=== PATIENT | female | born 1980 | race Caucasian/White ===

== ENCOUNTER 2024-05-08 09:02 | Emergency (ER) | payer OTHER, SELFPAY ==
[2024-05-08 09:03] VITALS: BP 116/81; PULSE 80; RESP 14; TEMP 36.7; O2SAT 98; BMI 26.5
[2024-05-08 09:08] VITALS: BP 116/81; PULSE 98; O2SAT 98
--- NOTE | 2024-05-08 09:13 | DI.RAD.S_ITS ---
PROCEDURE: XR RIBS RT MIN 3V W CXR 1V INDICATIONS: fall,rib pain TECHNIQUE: 2 views of the ribs were acquired, along with a single view chest. COMPARISON: None. FINDINGS: Surgical changes and devices: None. Bones and chest wall: No fractures or dislocations. No suspicious bony lesions. Overlying soft tissues appear unremarkable. Lungs and pleura: No pleural effusions or pneumothorax. Lungs appear clear. Mediastinum: Mediastinal contours appear normal. Heart size is normal. IMPRESSION: No displaced rib fracture or pneumothorax. Dictated by: Justo Noble M.D. on 05/08/2024 at 9:52 Approved by: Justo Noble M.D. on 05/08/2024 at 9:54
--- NOTE | 2024-05-08 09:22 | ED_ITS ---
HPI - Fall General Chief Complaint: Fall Stated Complaint: fell down stairs, r elbow pain, poss cracked ribs Time Seen by Provider: 05/08/24 09:20 Source: patient Mode of arrival: Ambulatory History of Present Illness HPI Narrative: 44-year-old female fell from steep ladder like stairs up to a loft this morning, all holding items in 1 hand, struck right chest, scraped right elbow, has predominance of right-sided chest pain that is worse with twisting movements and deep inspiration. She is able to move her right elbow and right shoulder and wrist and hand and fingers well. She denies striking her head, denies loss of consciousness, denies neck upper back, mid back midline discomfort. She does not take blood thinner medications. No nausea or vomiting. No weakness to face arm or leg. She has not tried any medications thus far for the discomfort Related Data Previous Rx's Medication Instructions Recorded albuterol sulfate 90 mcg/actuation 2 puff inhalation Q6H PRN 05/08/24 aerosol inhaler shortness of breath or wheezing #8.5 grams naproxen 500 mg tablet 500 mg PO BID 7 days #14 tabs 05/08/24 tramadol 50 mg tablet 50 mg PO TID PRN pain #14 tabs 05/08/24 Allergies Allergy/AdvReac Type Severity Reaction Status Date / Time No Known Drug Allergies Allergy Verified 05/08/24 09:14 Review of Systems Review of Systems Narrative: See HPI Patient History Social History Smoking Status: Current every day smoker Smoking Status: Current every day smoker Exam Narrative Exam Narrative: GENERAL: Well-developed patient, in mild distress. HEAD: Atraumatic. Normocephalic. EYES: Pupils equal round and reactive. Extraocular motions intact. No scleral icterus. No injection or drainage. ENT: Nose without bleeding, purulent drainage. Throat without erythema, tonsillar hypertrophy or exudate. Airway patent. NECK: Trachea midline. Non tender CARDIOVASCULAR: Regular rate and rhythm without murmurs, gallops, or rubs. RESPIRATORY: Clear to auscultation. Breath sounds equal bilaterally. No wheezes, rales, or rhonchi. Some tenderness right mid axillary line to the right posterior mid lower right chest, no bruising, no abrasions or lacerations, no flail segments. GASTROINTESTINAL: Abdomen soft, non-tender, nondistended. EXTREMITIES: Right elbow abrasion without gross deformity, full range of motion elbow, no other right upper extremity injuries obvious. BACK: Nontender without deformity or crepitance. No flank tenderness. No thoracic spine midline or paraspinous tenderness NEURO: AOx3. Motor functions grossly nonfocal SKIN: No rash or erythema of visible areas Initial Vital Signs Initial Vital Signs: Vital Signs Temperature 98.0 F 05/08/24 09:03 Pulse Rate 80 05/08/24 09:03 Respiratory Rate 14 05/08/24 09:03 Blood Pressure 116/81 05/08/24 09:03 Pulse Oximetry 98 05/08/24 09:03 Oxygen Delivery Method Room Air 05/08/24 09:03 Course Orders Ordered: Discontinued Medications Bacitracin (Bacitracin Oint 0.9 Gm Pckt) 1 applic TOP NOW ONE Stop: 05/08/24 09:39 Last Admin: 05/08/24 09:46 Dose: 1 applic Documented By: DIANA Naproxen (Naproxen 250 Mg Tablet) 500 mg PO NOW ONE Stop: 05/08/24 09:35 Last Admin: 05/08/24 09:45 Dose: 500 mg Documented By: CTS Tramadol HCl (Tramadol 50 Mg Tablet) 50 mg PO NOW ONE Stop: 05/08/24 09:35 Last Admin: 05/08/24 09:45 Dose: 50 mg Documented By: CTS Vital Signs Vital signs: Vital Signs - 8 hr 05/08/24 09:03 Temperature 98.0 F Pulse Rate 80 Respiratory Rate 14 Blood Pressure 116/81 Pulse Oximetry 98 Oxygen Delivery Method Room Air MDM - Fall Imaging Data Chest x-ray: Radiologist's Impression: [place] [address] XRay Report Signed Patient: Bea Reyna MR#: [id number] : 1980 Acct:[id number] Age/Sex: 44 / F Date of Service: 05/08/24 Loc: ED Accession Number: [id number] Procedure: XR ribs RT min 3V w CXR1V Ordering Provider: Tommy Ochoa MD PROCEDURE: XR RIBS RT MIN 3V W CXR 1V INDICATIONS: fall,rib pain TECHNIQUE: 2 views of the ribs were acquired, along with a single view chest. COMPARISON: None. FINDINGS: Surgical changes and devices: None. Bones and chest wall: No fractures or dislocations. No suspicious bony lesions. Overlying soft tissues appear unremarkable. Lungs and pleura: No pleural effusions or pneumothorax. Lungs appear clear. Mediastinum: Mediastinal contours appear normal. Heart size is normal. IMPRESSION: No displaced rib fracture or pneumothorax. Dictated by: Justo Noble M.D. on 05/08/2024 at 9:52 Approved by: Justo Noble M.D. on 05/08/2024 at 9:54 [facility] Narrative Medical decision making narrative: Fall from steep loft staircase today with abrasion to right elbow without gross deofrmity and with normal range of motion, also, pain to lateral posterior chest, lung clear, no respiratory distress, tenderness, CXR with R rib series ordered from triage was negative for acute lung changes or gabriel fractures per radiology report. We discussed pulmonary toilet, Albuterol with spacer, Incentive Spiromoter, pain meds, recheck lung exam advised early next week. Return precautions discussed. Home with family Discharge Plan Departure Patient Disposition: Home Clinical Impression: Fall (on) (from) other stairs and steps, initial encounter, Chest wall contusion, Abrasion of right elbow Activity Restrictions/Additional Instructions: Fall from a home lateral like stairs this morning, with right lateral rib pain, worse with movement and deep breathing. Chest x-ray with right rib series showed no lung injury patterns, no definite fracture. However not all fractures show up on initial x-rays. Chest wall contusions can be quite serious as well, if you are having pain that causes you not to breathe deeply, increasing her risk for localized collapse of the lung and infection/pneumonia complications. Take pain medications as needed. Breathe deeply, use incentive spirometer. Recheck lung exam in the next couple of days with your regular doctor. Return to this/nearest emergency department for any change worsening symptoms or any concerns prior Prescriptions: New albuterol sulfate 90 mcg/actuation HFA aerosol inhaler 2 puff inhalation Q6H PRN (Reason: shortness of breath or wheezing) Qty: 8.5 0RF naproxen 500 mg tablet 500 mg PO BID 7 Days Qty: 14 0RF tramadol 50 mg tablet 50 mg PO TID PRN (Reason: pain) Qty: 14 0RF Stand Alone Forms: Patient Portal/API/Survey
[2024-05-08] MEDS: NAPROXEN 250 MG TABLET 500 MG PO (09:45)
[2024-05-08] MEDS: TRAMADOL 50 MG TABLET PO (09:45)
[2024-05-08] MEDS: BACITRACIN OINT 0.9 GM PCKT 1 APPLIC TOP (09:46)
== END 2024-05-08 10:41 | disposition home or self-care (01) ==
PROVIDERS: Emergency Provider Emergency Medicine
DX: S20.219A Contusion of unspecified front wall of thorax, initial encounter (principal); S50.311A Abrasion of right elbow, initial encounter; W11.XXXA Fall on and from ladder, initial encounter
CPT/HCPCS: 71101; 99283